=== PATIENT | male | born 2000 | race Caucasian/White ===

== ENCOUNTER 2018-02-15 17:14 | Emergency (ER) | payer MEDICAID ==
[~2018-02-15] VITALS: Ht 188 cm; Wt 65.9 kg
[~2018-02-15 17:14] MED LIST: ALBE200T2 PO
[2018-02-15 18:03] LABS: URINE AMPHETAMINE SCREEN NEGATIVE (Neg); URINE BARBITUATE SCREEN NEGATIVE (Neg); URINE BENZODIAZEPINES SCREEN NEGATIVE (Neg); URINE CANNABINOID SCREEN POSITIVE (Neg); URINE COCAINE SCREEN NEGATIVE (Neg); URINE METHADONE SCREEN NEGATIVE (Neg); URINE OPIATE SCREEN NEGATIVE (Neg); URINE PHENCYCLIDINE SCREEN NEGATIVE (Neg)
[2018-02-15 18:53] LABS: ALANINE AMINOTRANSFERASE 21 U/L (12-78); ALBUMIN 3.6 G/DL (3.4-5.0); ALBUMIN/GLOBULIN RATIO 1.2 (1.1-1.5); ALKALINE PHOSPHATASE 68 IU/L (20-180); ANION GAP 7 (8-16); ASPARTATE AMINO TRANSFERASE 15 U/L (10-37); BILIRUBIN,TOTAL 0.3 MG/DL (0.1-1.0); BLOOD UREA NITROGEN 15 MG/DL (7-18); BUN/CREATININE RATIO 17.9 (5.4-32.0); CALCIUM 8.8 MG/DL (8.5-10.1); CHLORIDE 104 MMOL/L (99-107); CREATININE 0.84 MG/DL (0.60-1.10); ETHANOL < 0.010 GM/DL (0.0-0.010); GLUCOSE 123 MG/DL (70-104); POTASSIUM 3.8 MMOL/L (3.5-5.1); SODIUM 141 MMOL/L (135-145); TOTAL CARBON DIOXIDE 29.9 MMOL/L (24-32); TOTAL PROTEIN 6.7 G/DL (6.4-8.2); eGFR > 90 ML/MIN
[2018-02-15 18:56] LABS: BASOPHILS # (AUTO) 0.1 X10'3 (0-0.2); BASOPHILS % (AUTO) 0.7 % (0-1); EOSINOPHILS # (AUTO) 0.2 X10'3 (0-0.9); EOSINOPHILS % (AUTO) 3.1 % (0-6); HEMATOCRIT 43.5 % (42.0-52.0); HEMOGLOBIN 14.6 g/dl (14.0-17.9); LYMPHOCYTES # (AUTO) 2.8 X10'3 (1.1-4.8); MEAN CORPUSCULAR HEMOGLOBIN 31.5 PG (27.0-31.0); MEAN CORPUSCULAR HGB CONC 33.7 % (33.0-36.5); MEAN CORPUSCULAR VOLUME 93.6 FL (78-98); MEAN PLATELET VOLUME 8.3 FL (7.4-10.4); MONOCYTES # (AUTO) 0.5 X10'3 (0-0.9); MONOCYTES % (AUTO) 7.2 % (2-12); NEUTROPHILS # (AUTO) 3.9 X10'3 (1.8-7.7); PLATELET COUNT 224 X10'3 (140-440); RED BLOOD COUNT 4.65 X10'6 (4.70-6.10); RED CELL DISTRIBUTION WIDTH 12.6 % (11.5-14.5); WHITE BLOOD COUNT 7.5 X10'3 (4.5-11.0)
--- NOTE | 2018-02-15 19:24 | NUR ---
Packet faxed to [facility].
--- NOTE | 2018-02-15 19:37 | NUR ---
Telepsych consult initiated.
--- NOTE | 2018-02-15 19:46 | NUR ---
pt speaking with [facility] health worker. pt. cooperative.
--- NOTE | 2018-02-15 20:18 | NUR ---
Telepysch cancelled as pt did not meet criteria as per [facility].
--- NOTE | 2018-02-15 20:38 | NUR ---
pt is in bed sleeping supine, no s/s of distress, spontaneous, regular breathing
[2018-02-15 21:45] VITALS: BP 122/77
--- NOTE | 2018-02-15 21:49 | NUR ---
pt. discharged to home with family. dc instructions given to pt. with verbalized understanding.
== END 2018-02-15 21:51 | disposition home or self-care (01) ==
LOC: ER 17:14
DX: R45.851 Suicidal ideations (principal); F41.9 Anxiety disorder, unspecified; F32.9 Major depressive disorder, single episode, unspecified; F12.10 Cannabis abuse, uncomplicated; F17.200 Nicotine dependence, unspecified, uncomplicated; F90.9 Attention-deficit hyperactivity disorder, unspecified type; F43.10 Post-traumatic stress disorder, unspecified; F20.9 Schizophrenia, unspecified; F91.3 Oppositional defiant disorder; Z59.0 Homelessness
CPT/HCPCS: 36415; 80053; 80305; 80320; 85025; 99284

== ENCOUNTER 2018-03-23 10:37 | Emergency (ER) | payer MEDICAID ==
[~2018-03-23] VITALS: Ht 188 cm; Wt 71.6 kg
[2018-03-23] MEDS ORDERED: LIDOcaine 1% w/epiNEPHrine 1:200,000 30ml vial IM ONE ×2 (11:05)
[2018-03-23] MEDS ORDERED: SULF1TAB49 PO (12:02)
[2018-03-23 12:25] VITALS: BP 109/63
== END 2018-03-23 12:35 | disposition home or self-care (01) ==
LOC: ER 10:37
DX: L02.413 Cutaneous abscess of right upper limb (principal); L03.011 Cellulitis of right finger; F12.90 Cannabis use, unspecified, uncomplicated; F15.90 Other stimulant use, unspecified, uncomplicated; Z79.899 Other long term (current) drug therapy
CPT/HCPCS: 10061; 99284

== ENCOUNTER 2018-04-12 09:27 | Emergency (ER) | payer MEDICAID ==
[~2018-04-12] VITALS: Ht 185.4 cm; Wt 72.9 kg
[2018-04-12 09:48] VITALS: BP 130/75
--- NOTE | 2018-04-12 10:28 | NUR ---
pt is 18 yo male c/o abscess to posterior left ankle x2-3days, pt is homeless and said he had been walking through puddles, gave pt clean socks, waiting to be evaluated by provider
[2018-04-12] MEDS ORDERED: LIDOcaine 1% w/epiNEPHrine 1:200,000 30ml vial IM ONE (10:35)
[2018-04-12] MEDS ORDERED: SULF1TAB49 PO (10:39)
--- NOTE | 2018-04-12 11:10 | NUR ---
WOUND CX DONE ON POSTERIOR LEFT ANKLE, B. DIMITRI BARNETT I&D ABSCESS, PT JACK WELL, DRESSED WITH GUAZE AND GUAZE WRAP, GAVE PT 1 BOX OF 4X4, GUAZE ROLL, AND ANOTHER PAIR OF SOCKS
--- NOTE | 2018-04-12 11:20 | NUR ---
pt is going to the [place], gave pt neelima franklin
== END 2018-04-12 11:23 | disposition home or self-care (01) ==
LOC: ER 09:28
DX: L02.416 Cutaneous abscess of left lower limb (principal); F41.9 Anxiety disorder, unspecified; F32.9 Major depressive disorder, single episode, unspecified; F12.90 Cannabis use, unspecified, uncomplicated; F15.90 Other stimulant use, unspecified, uncomplicated; Z72.89 Other problems related to lifestyle
CPT/HCPCS: 10060; 87070; 87186; 99283; J3490; 87077

== ENCOUNTER → 2018-05-07 | Emergency (ER) | payer MEDICAID ==
[~2018-05-07] VITALS: Ht 182.9 cm; Wt 75.0 kg
[~2018-05-07] MED LIST changes: +PRED20TA PO
[2018-05-07 21:12] VITALS: BP 150/83
== END | disposition home or self-care (01) ==
LOC: ER 21:05
DX: L23.9 Allergic contact dermatitis, unspecified cause (principal); F12.90 Cannabis use, unspecified, uncomplicated; F15.90 Other stimulant use, unspecified, uncomplicated; Z79.899 Other long term (current) drug therapy
CPT/HCPCS: 99283

== ENCOUNTER 2018-08-23 16:15 | Emergency (ER) | payer MEDICAID ==
[~2018-08-23] VITALS: Ht 182.9 cm; Wt 74.1 kg
[~2018-08-23 16:15] MED LIST changes: -PRED20TA PO
[2018-08-23 16:22] VITALS: BP 124/74
[2018-08-23] MEDS ORDERED: LIDOcaine 1% w/epiNEPHrine 1:200,000 30ml vial IM ONE (16:25)
[2018-08-23] MEDS ORDERED: TRAM50TA2 PO (16:30)
[2018-08-23] MEDS ORDERED: SULF1TAB49 PO (16:30)
== END 2018-08-23 17:04 | disposition home or self-care (01) ==
LOC: ER 16:15
DX: L02.31 Cutaneous abscess of buttock (principal); F41.9 Anxiety disorder, unspecified; F32.9 Major depressive disorder, single episode, unspecified; F10.99 Alcohol use, unspecified with unspecified alcohol-induced disorder; F12.90 Cannabis use, unspecified, uncomplicated; F15.90 Other stimulant use, unspecified, uncomplicated; Z79.899 Other long term (current) drug therapy; Y90.9 Presence of alcohol in blood, level not specified
CPT/HCPCS: 10060; 87070; 87077; 87186; 99283

== ENCOUNTER 2019-01-19 08:24 | Emergency (ER) | payer MEDICAID ==
[~2019-01-19] VITALS: Ht 182.9 cm; Wt 72.7 kg
[2019-01-19 08:33] VITALS: BP 132/86
--- NOTE | 2019-01-19 09:10 | NUR ---
PT GIVEN MULTIPLE LOCAL RESOURCE INFORMATION SHEETS, ALSO GIVEN HOMELESS SACK LUNCH, PT HAS APPROPRIATE CLOTHES AND WAITING TO ED PROVIDER.
[2019-01-19] MEDS ORDERED: SULF1TAB49 PO (09:42)
== END 2019-01-19 10:14 | disposition home or self-care (01) ==
LOC: ER 08:24
DX: L03.012 Cellulitis of left finger (principal); F41.9 Anxiety disorder, unspecified; F32.9 Major depressive disorder, single episode, unspecified; F12.90 Cannabis use, unspecified, uncomplicated; F15.90 Other stimulant use, unspecified, uncomplicated; F10.99 Alcohol use, unspecified with unspecified alcohol-induced disorder; Z79.899 Other long term (current) drug therapy; Y90.9 Presence of alcohol in blood, level not specified
CPT/HCPCS: 10060; 99283

== ENCOUNTER 2019-07-08 20:58 | Emergency (ER) | payer MEDICAID ==
[~2019-07-08] VITALS: Ht 182.9 cm; Wt 75.5 kg
[2019-07-08 21:19] VITALS: BP 139/91
[2019-07-08] MEDS ORDERED: CEPH250T PO (22:12)
== END 2019-07-08 22:24 | disposition home or self-care (01) ==
LOC: ER 20:59
DX: L60.0 Ingrowing nail (principal); F41.9 Anxiety disorder, unspecified; F32.9 Major depressive disorder, single episode, unspecified; F12.90 Cannabis use, unspecified, uncomplicated; F15.90 Other stimulant use, unspecified, uncomplicated; Z72.89 Other problems related to lifestyle; Z79.899 Other long term (current) drug therapy
CPT/HCPCS: 99283

== ENCOUNTER 2019-11-22 20:06 | Emergency (ER) | payer MEDICAID ==
[~2019-11-22] VITALS: Ht 185.4 cm; Wt 70.0 kg
[2019-11-22 20:21] VITALS: BP 119/72
[2019-11-22] MEDS ORDERED: proparacaine 0.5% ophthalmic drops 15ml EACHEYE ONE (21:30)
[2019-11-22] MEDS ORDERED: ciprofloxacin 0.3% 2.5ml ophthalmic solution LEFTEYE STA (22:07)
== END 2019-11-22 22:41 | disposition home or self-care (01) ==
LOC: ER 20:07
DX: S05.02XA Injury of conjunctiva and corneal abrasion without foreign body, left eye, initial encounter (principal); J02.8 Acute pharyngitis due to other specified organisms; B97.89 Other viral agents as the cause of diseases classified elsewhere; F41.9 Anxiety disorder, unspecified; F32.9 Major depressive disorder, single episode, unspecified; F12.90 Cannabis use, unspecified, uncomplicated; F15.90 Other stimulant use, unspecified, uncomplicated; Z72.89 Other problems related to lifestyle; Z79.899 Other long term (current) drug therapy; X58.XXXA Exposure to other specified factors, initial encounter; Y93.89 Activity, other specified; Y92.89 Other specified places as the place of occurrence of the external cause; Y99.8 Other external cause status
CPT/HCPCS: 99283

== ENCOUNTER → 2020-02-10 | Emergency (ER) | payer MEDICAID ==
[~2020-02-10] VITALS: Ht 185.4 cm; Wt 74.1 kg
[2020-02-10 11:29] VITALS: BP 118/72
== END ==
LOC: ER 11:26
DX: Z02.89 Encounter for other administrative examinations (principal); L73.8 Other specified follicular disorders; F41.9 Anxiety disorder, unspecified; F32.9 Major depressive disorder, single episode, unspecified; F12.90 Cannabis use, unspecified, uncomplicated; F15.90 Other stimulant use, unspecified, uncomplicated; Z72.89 Other problems related to lifestyle; Z79.899 Other long term (current) drug therapy
CPT/HCPCS: 74176; 99284